=== PATIENT | female | born 1960 | race Caucasian/White ===

== ENCOUNTER 2023-06-20 09:08 | Outpatient (RCR) | payer BC, SELFPAY | END 2023-06-26 08:54 | disposition home or self-care (01) | LOC: RPT 09:08 | PROVIDERS: ATTENDING PHYSICIAN Specialist; PRIMARYCARE PHYSICIAN Internal Medicine | DX: Z47.89 Encounter for other orthopedic aftercare (principal); Z73.6 Limitation of activities due to disability | CPT/HCPCS: 97010; 97110; 97112; 97140 ==

== ENCOUNTER → 2024-08-25 10:31 | Outpatient (REF) | payer MEDICARE, OTHER, SELFPAY | LOC: HWWDC 10:31 | PROVIDERS: ATTENDING PHYSICIAN Obstetrics & Gynecology Gynecology; FAMILY PHYSICIAN Internal Medicine | DX: Z12.31 Encounter for screening mammogram for malignant neoplasm of breast (principal) | CPT/HCPCS: 77063; 77067 ==

== ENCOUNTER → 2024-11-22 08:45 | Outpatient (REF) | payer MEDICARE, OTHER, SELFPAY | LOC: PAVMRI 08:45 | PROVIDERS: ATTENDING PHYSICIAN Specialist | DX: M25.511 Pain in right shoulder (principal) | CPT/HCPCS: 73221 ==